=== PATIENT | male | born 1960 | race African-American/Black ===

== ENCOUNTER → 2016-11-26 | Outpatient (CLI) | payer OTHER ==
[2016-06-13 11:51] VITALS: BP 128/78
[2016-11-26 11:33] LABS: ALANINE AMINOTRANSFERASE 37 Units/L (12-78); ALBUMIN 3.4 g/dL (3.4-5.0); ALKALINE PHOSPHATASE 64 Units/L (46-116); ASPARTATE AMINO TRANSFERASE 20 Units/L (15-37); BLOOD UREA NITROGEN 20 mg/dL (7-18); CALCIUM 8.5 mg/dL (8.5-10.1); CARBON DIOXIDE 26.4 mmol/L (21-32); CHLORIDE 105 mmol/L (98-107); CHOL/HDL RATIO 3.5 (0.0-5.0); CHOLESTEROL 226 mg/dL (0-200); COR NA(FOR HYPERGLY) 141 mmol/L (136-145); CREATININE 1.32 mg/dL (0.70-1.30); GLUCOSE 150 mg/dL (65-99); HDL CHOLESTEROL 65 mg/dL (40-60); SODIUM 140 mmol/L (136-145); TOTAL PROTEIN 7.4 g/dL (6.4-8.2); TRIGLYCERIDES 170 mg/dL (0-150); eGFR BLACK RACES > 60 (>60); eGFR NON BLACK RACES 59 (>60)
[2016-11-26 11:34] LABS: HEMOGLOBIN A1C 7.6 % (4.5-6.2)
[2016-11-26 11:39] LABS: CREATININE,URINE 220.52 mg/dL (40-278); MICROALBUMIN,URINE 83.4 mg/L
[2016-11-26 11:43] LABS: BASOPHILS % (AUTO) 0.9 % (0.2-1.0); EOSINOPHILS # (AUTO) 0.2 x10^3/uL (0.0-0.2); EOSINOPHILS % (AUTO) 3.6 % (0.9-2.9); HEMATOCRIT 39.7 % (42.0-54.0); HEMOGLOBIN 13.3 g/dL (13.5-18.0); LYMPHOCYTES # (AUTO) 1.5 X10^3/uL (1.3-2.9); LYMPHOCYTES % (AUTO) 35.9 % (21.0-51.0); MEAN CORPUSCULAR HEMOGLOBIN 28.4 pg (27.0-34.0); MEAN CORPUSCULAR HGB CONC 33.5 g/dL (33.0-35.0); MEAN CORPUSCULAR VOLUME 84.8 fL (80.0-100.0); MEAN PLATELET VOLUME 7.5 fL (7.4-11.0); MONOCYTES # (AUTO) 0.3 x10^3/uL (0.3-0.8); MONOCYTES % (AUTO) 7.4 % (0.0-13.0); NEUTROPHILS # (AUTO) 2.2 x10^3/uL (2.2-4.8); NEUTROPHILS % (AUTO) 52.2 % (42.0-75.0); PLATELET COUNT 231 X10^3/uL (150.0-450.0); RED BLOOD COUNT 4.68 X10^6/uL (4.7-6.0); RED CELL DISTRIBUTION WIDTH 13.4 % (11.6-16.5); WHITE BLOOD COUNT 4.3 X10^3/uL (3.6-10.0)
[2016-11-26 11:58] LABS: ERYTHROCYTE SEDIMENTATION RATE 13 MM/HOUR (0-15)
[2016-12-02 06:17] LABS: ANTI-NUCLEAR ANTIBODY TEST None Detected (None Detected)
== END ==
LOC: LAB 10:25
PROVIDERS: ATTEND Nurse Practitioner Family
DX: R21 Rash and other nonspecific skin eruption (principal); E11.49 Type 2 diabetes mellitus with other diabetic neurological complication; I10 Essential (primary) hypertension
CPT/HCPCS: 36415; 80053; 80061; 82043; 83036; 83516; 85025; 85652; 86021; 86140; 86308

== ENCOUNTER → 2016-12-05 | Outpatient (CLI) | payer OTHER ==
[2016-06-13 11:51] VITALS: BP 128/78
[2016-12-05 09:56] LABS: ALANINE AMINOTRANSFERASE 37 Units/L (12-78); ALBUMIN 3.4 g/dL (3.4-5.0); ALKALINE PHOSPHATASE 67 Units/L (46-116); ASPARTATE AMINO TRANSFERASE 21 Units/L (15-37); BLOOD UREA NITROGEN 16 mg/dL (7-18); CALCIUM 8.8 mg/dL (8.5-10.1); CARBON DIOXIDE 27.3 mmol/L (21-32); CHLORIDE 105 mmol/L (98-107); COR NA(FOR HYPERGLY) 144 mmol/L (136-145); CREATININE 1.38 mg/dL (0.70-1.30); GLUCOSE 163 mg/dL (65-99); SODIUM 142 mmol/L (136-145); TOTAL PROTEIN 7.6 g/dL (6.4-8.2); eGFR BLACK RACES > 60 (>60); eGFR NON BLACK RACES 56 (>60)
[2016-12-05 10:13] LABS: BASOPHILS # (AUTO) 0.1 X10^3/uL (0.0-0.1); BASOPHILS % (AUTO) 1.1 % (0.2-1.0); EOSINOPHILS # (AUTO) 0.2 x10^3/uL (0.0-0.2); EOSINOPHILS % (AUTO) 3.5 % (0.9-2.9); HEMATOCRIT 39.7 % (42.0-54.0); HEMOGLOBIN 13.3 g/dL (13.5-18.0); MEAN CORPUSCULAR HEMOGLOBIN 27.9 pg (27.0-34.0); MEAN CORPUSCULAR HGB CONC 33.4 g/dL (33.0-35.0); MEAN CORPUSCULAR VOLUME 83.4 fL (80.0-100.0); MEAN PLATELET VOLUME 7.7 fL (7.4-11.0); MONOCYTES # (AUTO) 0.4 x10^3/uL (0.3-0.8); MONOCYTES % (AUTO) 8.4 % (0.0-13.0); NEUTROPHILS # (AUTO) 2.7 x10^3/uL (2.2-4.8); PLATELET COUNT 255 X10^3/uL (150.0-450.0); RED BLOOD COUNT 4.76 X10^6/uL (4.7-6.0); RED CELL DISTRIBUTION WIDTH 13.5 % (11.6-16.5); WHITE BLOOD COUNT 5.3 X10^3/uL (3.6-10.0)
[2016-12-05 10:38] LABS: IRON 84 ug/dL (50-175); TOTAL IRON BINDING CAPACITY 262 ug/dL (250-450)
== END | disposition home or self-care (01) | DRG 376 ==
LOC: LAB 09:22
PROVIDERS: ATTEND Internal Medicine Medical Oncology
DX: C18.3 Malignant neoplasm of hepatic flexure (principal); D63.0 Anemia in neoplastic disease; R53.81 Other malaise
CPT/HCPCS: 36415; 80053; 82378; 82607; 82728; 82746; 83540; 83550; 85025

== ENCOUNTER → 2016-12-20 | Outpatient (CLI) | payer OTHER ==
[2016-06-13 11:51] VITALS: BP 128/78
[2016-12-20 13:14] LABS: CREATININE 1.54 mg/dL (0.70-1.30)
--- NOTE | 2016-12-20 15:09 | MRI ---
HISTORY: Low back pain, bilateral radiculopathy Study: MRI lumbar spine without contrast Comparison: None Technique: Multiplanar multi-sequence MRI of the lumbar spine was obtained. Sagittal T1, sagittal T 2, and stir weighted images, axial T1, and axial T2 images were obtained. Findings: The lumbar spine demonstrates normal alignment with the expected signal characteristics of the bone marrow. The conus of the cord terminates normally. T12 -- L1: No evidence for compressive disc disease. The neural foramina are patent. The joints are normal L1 -- L2: No evidence for compressive disc disease. The neural foramina are patent. The joints are n ormal. L2 -- L3: No evidence for compressive disc disease. The neural foramina are patent. The joints are n ormal. L3 -- L4: No evidence for compressive disc disease. The neural foramina are patent. Bilateral facet arthropathy is present. L4 -- L5: No evidence for compressive disc disease. The neural foramina are patent. Bilateral facet arthropathy is present. L5 -- S1: No evidence for compressive disc disease. The neural foramina are patent. Bilateral facet arthropathy is present. IMPRESSION: As above Reported By:
--- NOTE | 2016-12-23 16:13 | MRI ---
MRI left hip without and with contrast Indication: Left hip pain. Comparison: CT abdomen and pelvis dated 01/29/2016 Technique: Multiplanar, multisequence MR images of the left hip were obtained without and with IV co ntrast. Findings: There are stable small sclerotic foci within the posterior medial iliac bones bilaterally; these are nonspecific, but of doubtful clinical significance. No acute fracture or subluxation iden tified. There is mild lower lumbar spondylosis. The SI joints and pubic symphysis are grossly intact . There are mild degenerative changes of both hips. No full-thickness chondral defect appreciated. No overt labral tear or large paralabral cyst identified. There is no left hip joint effusion. Mild melanie ma about the distal gluteus medius and minimus tendons noted. The soft tissue structures about the l eft hip are otherwise grossly unremarkable. The neurovascular structures are within normal limits. N o abnormal enhancement identified. Colonic diverticulosis is noted. There is mild prostate enlargement. Impression: 1. Mild left hip DJD. No acute hip fracture. 2. Mild gluteus minimus and medius tendinosis 3. Prostate enlargement. Correlation with PSA recommended. 4. Colonic diverticulosis Reported By:
== END ==
LOC: RAD 12:50
PROVIDERS: ATTEND Nurse Practitioner Family
DX: M54.16 Radiculopathy, lumbar region (principal); M16.12 Unilateral primary osteoarthritis, left hip
CPT/HCPCS: 36415; 72148; 73723; 82565; 84520

== ENCOUNTER → 2017-04-08 | Outpatient (CLI) | payer OTHER ==
[2016-06-13 11:51] VITALS: BP 128/78
[2017-04-08 10:44] LABS: HEMOGLOBIN A1C 7.1 % (4.5-6.2)
[2017-04-08 10:45] LABS: ALANINE AMINOTRANSFERASE 29 Units/L (12-78); ALBUMIN 3.4 g/dL (3.4-5.0); ALKALINE PHOSPHATASE 71 Units/L (46-116); ASPARTATE AMINO TRANSFERASE 20 Units/L (15-37); BLOOD UREA NITROGEN 16 mg/dL (7-18); CALCIUM 8.8 mg/dL (8.5-10.1); CARBON DIOXIDE 28.7 mmol/L (21-32); CHLORIDE 104 mmol/L (98-107); CHOLESTEROL 210 mg/dL (0-200); COR NA(FOR HYPERGLY) 140 mmol/L (136-145); CREATININE 1.32 mg/dL (0.70-1.30); HDL CHOLESTEROL 70 mg/dL (40-60); SODIUM 139 mmol/L (136-145); TOTAL PROTEIN 7.4 g/dL (6.4-8.2); TRIGLYCERIDES 124 mg/dL (0-150); eGFR BLACK RACES > 60 (>60); eGFR NON BLACK RACES 59 (>60)
[2017-04-08 10:49] LABS: BASOPHILS % (AUTO) 1.1 % (0.2-1.0); EOSINOPHILS # (AUTO) 0.2 x10^3/uL (0.0-0.2); EOSINOPHILS % (AUTO) 3.9 % (0.9-2.9); HEMATOCRIT 39.1 % (42.0-54.0); HEMOGLOBIN 12.7 g/dL (13.5-18.0); LYMPHOCYTES # (AUTO) 1.7 X10^3/uL (1.3-2.9); LYMPHOCYTES % (AUTO) 42.2 % (21.0-51.0); MEAN CORPUSCULAR HEMOGLOBIN 27.2 pg (27.0-34.0); MEAN CORPUSCULAR HGB CONC 32.5 g/dL (33.0-35.0); MEAN CORPUSCULAR VOLUME 83.6 fL (80.0-100.0); MEAN PLATELET VOLUME 7.8 fL (7.4-11.0); MONOCYTES # (AUTO) 0.3 x10^3/uL (0.3-0.8); NEUTROPHILS # (AUTO) 1.8 x10^3/uL (2.2-4.8); NEUTROPHILS % (AUTO) 44.8 % (42.0-75.0); PLATELET COUNT 233 X10^3/uL (150.0-450.0); RED BLOOD COUNT 4.68 X10^6/uL (4.7-6.0); RED CELL DISTRIBUTION WIDTH 13.7 % (11.6-16.5); WHITE BLOOD COUNT 4.1 X10^3/uL (3.6-10.0)
[2017-04-08 11:19] LABS: CREATININE,URINE 79.16 mg/dL (40-278); MICROALBUMIN,URINE 25.7 mg/L
[2017-04-08 11:29] LABS: TOTAL PSA 5.63 ng/mL (0.13-4.0)
== END | disposition home or self-care (01) | DRG 696 ==
LOC: LAB 09:47
PROVIDERS: ATTEND Nurse Practitioner Family
DX: R35.8 Other polyuria (principal); E11.69 Type 2 diabetes mellitus with other specified complication; E11.40 Type 2 diabetes mellitus with diabetic neuropathy, unspecified
CPT/HCPCS: 36415; 80053; 80061; 82043; 83036; 84153; 85025

== ENCOUNTER → 2017-06-30 | Outpatient (CLI) | payer OTHER ==
[2016-06-13 11:51] VITALS: BP 128/78
[2017-06-30 10:58] LABS: ALANINE AMINOTRANSFERASE 50 Units/L (12-78); ASPARTATE AMINO TRANSFERASE 24 Units/L (15-37)
== END ==
LOC: LAB 10:26
PROVIDERS: ATTEND Nurse Practitioner Family
DX: R74.8 Abnormal levels of other serum enzymes (principal)
CPT/HCPCS: 36415; 84450; 84460

== ENCOUNTER → 2017-09-02 | Outpatient (CLI) | payer OTHER ==
[2016-06-13 11:51] VITALS: BP 128/78
[2017-09-02 10:25] LABS: ALANINE AMINOTRANSFERASE 44 Units/L (12-78); ALBUMIN 3.5 g/dL (3.4-5.0); ALKALINE PHOSPHATASE 61 Units/L (46-116); ASPARTATE AMINO TRANSFERASE 21 Units/L (15-37); BLOOD UREA NITROGEN 22 mg/dL (7-18); CALCIUM 8.3 mg/dL (8.5-10.1); CARBON DIOXIDE 28.3 mmol/L (21-32); CHLORIDE 105 mmol/L (98-107); CHOL/HDL RATIO 3.1 (0.0-5.0); CHOLESTEROL 235 mg/dL (0-200); COR NA(FOR HYPERGLY) 140 mmol/L (136-145); CREATININE 1.45 mg/dL (0.70-1.30); HDL CHOLESTEROL 77 mg/dL (40-60); SODIUM 140 mmol/L (136-145); TOTAL PROTEIN 7.5 g/dL (6.4-8.2); TRIGLYCERIDES 129 mg/dL (0-150); eGFR BLACK RACES > 60 (>60); eGFR NON BLACK RACES 53 (>60)
[2017-09-02 10:41] LABS: BASOPHILS # (AUTO) 0.1 X10^3/uL (0.0-0.1); BASOPHILS % (AUTO) 1.5 % (0.2-1.0); EOSINOPHILS # (AUTO) 0.2 x10^3/uL (0.0-0.2); EOSINOPHILS % (AUTO) 2.9 % (0.9-2.9); HEMOGLOBIN 12.5 g/dL (13.5-18.0); LYMPHOCYTES % (AUTO) 37.6 % (21.0-51.0); MEAN CORPUSCULAR HEMOGLOBIN 28.9 pg (27.0-34.0); MEAN CORPUSCULAR HGB CONC 33.9 g/dL (33.0-35.0); MEAN CORPUSCULAR VOLUME 85.2 fL (80.0-100.0); MEAN PLATELET VOLUME 7.2 fL (7.4-11.0); MONOCYTES # (AUTO) 0.4 x10^3/uL (0.3-0.8); MONOCYTES % (AUTO) 7.1 % (0.0-13.0); NEUTROPHILS # (AUTO) 2.8 x10^3/uL (2.2-4.8); NEUTROPHILS % (AUTO) 50.9 % (42.0-75.0); PLATELET COUNT 270 X10^3/uL (150.0-450.0); RED BLOOD COUNT 4.34 X10^6/uL (4.7-6.0); RED CELL DISTRIBUTION WIDTH 13.8 % (11.6-16.5); WHITE BLOOD COUNT 5.4 X10^3/uL (3.6-10.0)
[2017-09-02 11:36] LABS: TOTAL PSA 8.65 ng/mL (0.13-4.0)
[2017-09-02 11:44] LABS: CREATININE,URINE 131.2 mg/dL (40-278); MICROALBUMIN,URINE 41.8 mg/L
== END ==
LOC: LAB 09:54
PROVIDERS: ATTEND Nurse Practitioner Family
DX: R97.20 Elevated prostate specific antigen [PSA] (principal); E78.2 Mixed hyperlipidemia; I10 Essential (primary) hypertension; E11.40 Type 2 diabetes mellitus with diabetic neuropathy, unspecified
CPT/HCPCS: 36415; 80053; 80061; 82043; 84153; 85025

== ENCOUNTER → 2017-09-16 | Outpatient (CLI) | payer OTHER ==
[2016-06-13 11:51] VITALS: BP 128/78
[2017-09-19 07:26] LABS: IMMUNOGLOBULIN M 58 mg/dL (35-263)
== END ==
LOC: LAB 11:54
PROVIDERS: ATTEND Nurse Practitioner Family
DX: R60.0 Localized edema (principal); R70.0 Elevated erythrocyte sedimentation rate; R79.82 Elevated C-reactive protein (CRP)
CPT/HCPCS: 36415; 82784; 85652; 86140